=== PATIENT | female | born 1975 | race Two or more races ===

== ENCOUNTER 2018-03-09 10:48 | Emergency (ER) | payer OTHER ==
[2018-03-09 11:29] VITALS: BMI 23.3
[2018-03-09] MEDS ORDERED: HYDROmorphone HCl 2 MG/ML VIAL ONE (12:02)
[2018-03-09 13:24] LABS: HCG,QUALITATIVE URINE Negative
--- NOTE | 2018-03-09 13:37 | PDOC ---
History of Present Illness - General Chief Complaint: Revisit, Lab Variance Stated Complaint: PAIN Time Seen by Provider: 03/09/18 11:54 History Source: Patient Exam Limitations: No Limitations - History of Present Illness Initial Comments: 03/09/18 12:37 43-year-old Female with recent diagnosis of anemia presents to ED with complaints of intermittent in fatigue and shortness of breath with exertion over the past few months. Patient states went to her doctor for annual physical earlier this week and received a phone call that her hemoglobin was low and needed to go to the ER. Patient denies heavy menstrual cycle history of fibroids but states that have anemia during childbirth 9+ years ago. Patient states is not taking any supplements and denies frequent bruising or easy bleeding. Timing/Duration: intermittent Severity: mild Associated Symptoms: reports: malaise, shortness of breath, weakness Past History - Travel Traveled outside of the country in the last 30 days: No Close contact w/someone who was outside of country & ill: No - Past Medical History Allergies/Adverse Reactions: Allergies Allergy/AdvReac Type Severity Reaction Status Date / Time No Known Allergies Allergy Verified 03/09/18 12:41 - Suicide/Smoking/Psychosocial Hx Smoking History: Never smoked Patient Lives Alone: No Lives with/in: spouse/SO Review of Systems - Review of Systems Able to Perform ROS?: Yes Constitutional: Yes: Weakness HEENTM: No: Symptoms Reported Respiratory: Yes: Shortness of Breath Cardiac (ROS): Yes: Symptoms Reported. No: Lightheadedness ABD/GI: No: Symptoms Reported : No: Symptoms Reported Musculoskeletal: No: Symptoms Reported Integumentary: No: Symptoms Reported Neurological: Yes: Weakness. No: Dizziness Endocrine: No: Symptoms Reported Hematologic/Lymphatic: Yes: Anemia *Physical Exam - Vital Signs Last Vital Signs Temp Pulse Resp BP Pulse Ox 98.8 F 81 18 116/56 L 100 03/09/18 11:18 03/09/18 11:18 03/09/18 11:18 03/09/18 11:18 03/09/18 11:18 - Physical Exam General Appearance: Yes: Nourished, Appropriately Dressed. No: Apparent Distress HEENT: positive: EOMI, TANNER, Pharynx Normal. negative: Pale Conjunctivae Neck: positive: Normal Thyroid, Supple Respiratory/Chest: positive: Lungs Clear, Normal Breath Sounds. negative: Respiratory Distress, Accessory Muscle Use Cardiovascular: positive: Regular Rhythm, Regular Rate. negative: Murmur Integumentary: positive: Normal Color, Warm, Moist Neurologic: positive: Normal Mood/Affect, Motor Strength 5/5 ( ambulatory) Moderate Sedation - Procedure Monitoring Vital Signs: Procedure Monitoring Vital Signs Temperature 98.8 F 03/09/18 11:18 Pulse Rate 81 03/09/18 11:18 Respiratory Rate 18 03/09/18 11:18 Blood Pressure 116/56 L 03/09/18 11:18 O2 Sat by Pulse Oximetry (%) 100 03/09/18 11:18 ED Treatment Course - LABORATORY CBC & Chemistry Diagram: 03/09/18 12:54 03/09/18 12:54 Medical Decision Making - Medical Decision Making 03/09/18 12:39 Chief complaint: Patient sent here for evaluation of low hemoglobin. Patient with intermittent shortness of breath and weakness over the past month but denies any other complaints. Patient states had anemia while 29+ years ago. Exam: Patient with normal vital signs Plan: CBC, comp, type and screen, urinalysis and . Patient states does not want any transfusion and wants to go home regardless of the number but will start on iron 03/09/18 14:06 Laboratory Tests 03/09/18 03/09/18 03/09/18 12:54 12:54 12:54 WBC 4.6 Hgb 5.8 L* Hct 22.1 L MCV 52.0 L MCH 13.5 L MCHC 26.0 L RDW 28.6 H Lymphocytes % 41.9 H Sodium 137 Potassium 3.9 Chloride 104 Carbon Dioxide 26 Anion Gap 7 L BUN 14 Creatinine 0.7 Random Glucose 82 Calcium 8.5 Total Bilirubin 0.5 AST 18 ALT 23 Alkaline Phosphatase 73 Total Protein 7.3 Albumin 3.9 TSH 0.64 Urine HCG, Qual Negative Discussed with patient to receive blood transfusion. Patient at this time states does not want to receive a blood transfusion once to discuss the results with her first. Patient understands she will have the sign out AMA and is coherent alert and oriented. AMA forms completed. 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 Understand that leaving AGAINST MEDICAL ADVICE today you have chosen to be responsible for your own medical care. - Post Discharge Activity
[2018-03-09 13:39] LABS: EOS % 1.3 % (0-4.5); HEMATOCRIT 22.1 % (32.4-45.2); LYMPH % 41.9 % (8-40); MONO % 6.9 % (3.8-10.2); NEUT % 48.9 % (42.8-82.8); RBC 4.26 M/mm3 (3.60-5.2); RDW 28.6 % (11.6-15.6); WHITE BLOOD COUNT 4.6 K/mm3 (4.0-10.0)
[2018-03-09 13:40] LABS: MCH 13.5 pg (25.7-33.7)
[2018-03-09 13:42] LABS: HEMOGLOBIN 5.8 GM/dL (10.7-15.3)
[2018-03-09 13:45] LABS: ALBUMIN 3.9 g/dl (3.4-5.0); ALK PHOS 73 U/L (45-117); ANION GAP 7 MMOL/L (8-16); BILIRUBIN,TOTAL 0.5 mg/dL (0.2-1); BLOOD UREA NITROGEN 14 mg/dL (7-18); CALCIUM 8.5 mg/dL (8.5-10.1); CHLORIDE 104 mmol/L (98-107); CO2 26 mmol/L (21-32); CREATININE 0.7 mg/dL (0.55-1.3); GLUCOSE,RANDOM 82 mg/dL (74-106); POTASSIUM 3.9 mmol/L (3.5-5.1); SGOT/AST 18 U/L (15-37); SGPT/ALT 23 U/L (13-61); SODIUM 137 mmol/L (136-145); TOT PROT 7.3 g/dl (6.4-8.2)
[2018-03-09 13:56] VITALS: BP 124/76; PULSE 80; TEMP 98.4
[2018-03-09 14:05] LABS: URINE APPEARANCE SLCLOUDY; URINE BILIRUBIN NEGATIVE (<2.0 mg/dL); URINE COLOR LTYELLOW; URINE GLUCOSE (UA) NEGATIVE (NEGATIVE); URINE KETONE NEGATIVE (NEGATIVE); URINE LEUK ESTERASE NEGATIVE (NEGATIVE); URINE NITRITE NEGATIVE (NEGATIVE); URINE PROTEIN NEGATIVE (NEGATIVE); URINE UROBILINOGEN NEGATIVE mg/dL (0.2-1.0)
[2018-03-09 15:21] LABS: MEAN PLT VOLUME 8.3 fl (7.5-11.1); OVALOCYTE 1+; PLATELET COUNT 135 K/MM3 (134-434); TEAR DROP CELLS 1+
== END 2018-03-09 14:04 | disposition left against medical advice (07) ==
LOC: JER 10:48
DX: D64.9 Anemia, unspecified (principal)
CPT/HCPCS: 36415; 80053; 81003; 84443; 84703; 85025; 86850; 86900; 86901; 99282-25

== ENCOUNTER 2018-03-10 08:14 | Observation (INO) | payer OTHER ==
[2018-03-10 08:22] VITALS: BMI 24.5
[2018-03-10 09:44] LABS: BASO % 0.8 % (0-2.0); EOS % 1.6 % (0-4.5); HEMATOCRIT 22.6 % (32.4-45.2); LYMPH % 46.5 % (8-40); MCHC 26.8 g/dl (32.0-36.0); MEAN PLT VOLUME 8.4 fl (7.5-11.1); MONO % 8.1 % (3.8-10.2); RBC 4.33 M/mm3 (3.60-5.2); RDW 28.9 % (11.6-15.6); WHITE BLOOD COUNT 4.2 K/mm3 (4.0-10.0)
[2018-03-10 10:05] LABS: MCH 13.9 pg (25.7-33.7)
[2018-03-10 10:14] LABS: INR 1.06 (0.83-1.09); PROTHROMBIN TIME (PATIENT) 12.5 SEC (9.7-13.0)
[2018-03-10 10:16] LABS: ACTIVATED PTT 28.1 SECONDS (25.2-36.5)
[2018-03-10 10:27] LABS: ALBUMIN 3.9 g/dl (3.4-5.0); ALK PHOS 82 U/L (45-117); ANION GAP 9 MMOL/L (8-16); BILIRUBIN,TOTAL 0.6 mg/dL (0.2-1); BLOOD UREA NITROGEN 12 mg/dL (7-18); CALCIUM 8.6 mg/dL (8.5-10.1); CHLORIDE 104 mmol/L (98-107); CO2 26 mmol/L (21-32); CREATININE 0.7 mg/dL (0.55-1.3); GLUCOSE,RANDOM 85 mg/dL (74-106); SGOT/AST 16 U/L (15-37); SGPT/ALT 21 U/L (13-61); SODIUM 139 mmol/L (136-145); TOT PROT 7.5 g/dl (6.4-8.2)
--- NOTE | 2018-03-10 11:51 | EKG ---
Test Reason : Blood Pressure : / mmHG Vent. Rate : 078 BPM Atrial Rate : 078 BPM P-R Int : 144 ms QRS Dur : 070 ms QT Int : 368 ms P-R-T Axes : 040 053 038 degrees QTc Int : 419 ms NORMAL SINUS RHYTHM NORMAL ECG NO PREVIOUS ECGS AVAILABLE Confirmed by RAISA SALINAS, ERICKA ([id number]) on 03/10/2018 11:51:08 AM Referred By: Confirmed By:ERICKA KLINE MD
--- NOTE | 2018-03-10 11:56 | PDOC ---
History of Present Illness - General Chief Complaint: Blood Transfusion Stated Complaint: BLOOD TRANSFUSION Time Seen by Provider: 03/10/18 09:29 Past History - Past Medical History Allergies/Adverse Reactions: Allergies Allergy/AdvReac Type Severity Reaction Status Date / Time No Known Allergies Allergy Verified 03/10/18 08:18 Home Medications: Ambulatory Orders Ferrous Sulfate 325 mg PO BID #60 tablet 03/09/18 COPD: No Dialysis: No Hypercholesterolemia: No - Immunization History Immunization Up to Date: No - Suicide/Smoking/Psychosocial Hx Smoking History: Never smoked *Physical Exam - Vital Signs Last Vital Signs Temp Pulse Resp BP Pulse Ox 98.6 F 86 16 122/80 99 03/10/18 08:19 03/10/18 08:19 03/10/18 08:19 03/10/18 08:19 03/10/18 08:19 Moderate Sedation - Procedure Monitoring Vital Signs: Procedure Monitoring Vital Signs Temperature 98.6 F 03/10/18 08:19 Pulse Rate 86 03/10/18 08:19 Respiratory Rate 16 03/10/18 08:19 Blood Pressure 122/80 03/10/18 08:19 O2 Sat by Pulse Oximetry (%) 99 03/10/18 08:19 ED Treatment Course - LABORATORY CBC & Chemistry Diagram: 03/10/18 09:29 03/10/18 09:17 - ADDITIONAL ORDERS Additional order review: Laboratory Results 03/10/18 03/10/18 03/10/18 10:07 09:29 09:29 PT with INR 12.50 INR 1.06 PTT (Actin FS) 28.1 Sodium Potassium Chloride Carbon Dioxide Anion Gap BUN Creatinine Creat Clearance w eGFR Random Glucose Calcium Total Bilirubin AST ALT Alkaline Phosphatase Total Protein Albumin Stool Occult Blood Negative Blood Type O POSITIVE Antibody Screen Negative Crossmatch See Detail 03/10/18 09:17 PT with INR INR PTT (Actin FS) Sodium 139 Potassium 4.0 Chloride 104 Carbon Dioxide 26 Anion Gap 9 BUN 12 Creatinine 0.7 Creat Clearance w eGFR > 60 Random Glucose 85 Calcium 8.6 Total Bilirubin 0.6 AST 16 ALT 21 Alkaline Phosphatase 82 Total Protein 7.5 Albumin 3.9 Stool Occult Blood Blood Type Antibody Screen Crossmatch 03/10/18 09:29 RBC 4.33 MCV 52.0 L MCHC 26.8 L RDW 28.9 H Neutrophils % 43.0 Lymphocytes % 46.5 H Monocytes % 8.1 Eosinophils % 1.6 Basophils % 0.8 *DC/Admit/Observation/Transfer - Referrals Referrals: James Tejeda MD [Primary Care Provider] - - Patient Instructions - Post Discharge Activity
--- NOTE | 2018-03-10 12:06 | PDOC ---
Attending Attestation - Resident Resident Name: Marlen Langston - ED Attending Attestation I have performed the following: I have examined & evaluated the patient, The case was reviewed & discussed with the resident, I agree w/resident's findings & plan - HPI HPI: 03/10/18 12:06 43-year-old Female with recent diagnosis of anemia presents to ED with complaints of intermittent in fatigue, dizziness and shortness of breath with exertion over the past few months. Patient states went to her doctor for annual physical earlier this week and received a phone call that she was anemic, told she needed to go to the ER. Patient denies heavy menstrual cycle history of fibroids but states that have anemia during childbirth 9+ years ago. no history of transfusion. Patient states is not taking any supplements and denies frequent bruising or easy bleeding. AMAd yesterday in the ED, where she was noted to be anemic 5.8/03/10/18 12:08 - Physicial Exam PE: 03/10/18 12:09 NAD, well appearing, PERRL, EOMI, MMM, pale conjunctiva, anicteric; neck supple. lungs clear, RRR, abdomen soft nontender. BAUTISTA x4, no calf tenderness. No peripheral edema. pale appearing, WWP. - Medical Decision Making 03/10/18 12:10 See HPI for details Vital signs reviewed, wnl. Prior notes reviewed, including admissions, discharges and consultations. laboratory results and imaging reviewed, basic labs and lytes wnl, coags normal. H/H 6.8/, severely anemic. labs from yesterday reviewed, also normal TSH and lytes, with Anemia noted Txs Rh positive status, from yesterday EKG normal sinus rhythm, no interval abnormalities, narrow QRS, ST and T wave segments and morphology normal. ED course: consented for blood transfusion, indication of severe anemia with unclear source. tx 2 units pRBC, monitor, observation. anemia workup ordered and sent. admit OBS. 03/10/18 12:14 03/10/18 12:16 Heart Score/ECG Review - ECG Impressions Normal ECG: Yes Comment:: 03/10/18 12:14 EKG normal sinus rhythm, no interval abnormalities, narrow QRS, ST and T wave segments and morphology normal.
[2018-03-10 12:34] LABS: BILIRUBIN,DIRECT 0.1 mg/dL (0.0-0.2)
[2018-03-10 12:48] LABS: PLATELET ESTIMATE DECREASED
[2018-03-10 13:14] LABS: PLATELET COUNT 111 K/MM3 (134-434)
--- NOTE | 2018-03-10 13:33 | HP ---
Admitting History and Physical - Primary Care Physician PCP: James Tejeda - Admission History of Present Illness: send from pmd office due to sever anemia. pt reports feels tired hb around 6 -- soke with pts pmd -- new pt -- no previous labs pt reports had iron trasfusions in past with other doctors denies cp no bad pain denies blood in stools denies heavy bleeding pt seen in er-- got one unit of prbcs going to get second pt dont want to stay says has to go home after transfusion says will follow with her pmd-- explained need likley iron transfusions/ further work up pt says will follow with her pmd History Source: Patient Limitations to Obtaining History: No Limitations - Smoking History Smoking history: Never smoked Home Medications - Allergies Allergies/Adverse Reactions: Allergies Allergy/AdvReac Type Severity Reaction Status Date / Time No Known Allergies Allergy Verified 03/10/18 08:18 - Home Medications Home Medications: Ambulatory Orders Ferrous Sulfate 325 mg PO BID #60 tablet 03/09/18 Review of Systems - Review of Systems Constitutional: reports: Weakness Eyes: reports: No Symptoms Neck: reports: No Symptoms Cardiovascular: reports: No Symptoms Respiratory: reports: No Symptoms Gastrointestinal: reports: No Symptoms Genitourinary: reports: No Symptoms Neurological: reports: No Symptoms Hematology/Lymphatic: reports: No Symptoms Psychiatric: reports: No Symptoms Physical Examination Vital Signs: Vital Signs Temperature 98 F 03/10/18 12:45 Pulse Rate 82 03/10/18 12:45 Respiratory Rate 16 03/10/18 12:45 Blood Pressure 152/81 03/10/18 12:45 O2 Sat by Pulse Oximetry (%) 98 03/10/18 12:45 Constitutional: Yes: No Distress, Calm Eyes: Yes: Other (conjuctiva pale) Neck: Yes: Supple Cardiovascular: Yes: Regular Rate and Rhythm Respiratory: Yes: CTA Bilaterally Gastrointestinal: Yes: Soft Edema: No Neurological: Yes: WNL, Alert Psychiatric: Yes: Alert Labs: CBC, BMP 03/10/18 09:29 03/10/18 09:17 Imaging - Results EKG: Report Reviewed Problem List - Problems (1) Iron deficiency anemia Code(s): D50.9 - IRON DEFICIENCY ANEMIA, UNSPECIFIED Assessment/Plan discussed in detail not willing to stay f/u with pmd advised then need iron infusions/ supplement/ hematology consult will d/c after 2nd transfusion lasix after first transfusion discussed with nursing staff also
[2018-03-10] MEDS ORDERED: FUROSEMIDE 40 MG/4 ML INJECTABLE VIAL IVPUSH ONE (13:50)
[2018-03-10] MEDS ORDERED: FUROSEMIDE 40 MG/4 ML INJECTABLE VIAL ONE (14:09)
[2018-03-10 14:32] VITALS: TEMP 97.8
[2018-03-10 16:24] VITALS: BP 114/79; PULSE 75
--- NOTE | 2018-03-10 18:17 | DS ---
Physical Examination Vital Signs: Vital Signs Temperature 97.8 F 03/10/18 16:21 Pulse Rate 75 03/10/18 16:21 Respiratory Rate 16 03/10/18 16:21 Blood Pressure 114/79 03/10/18 16:21 O2 Sat by Pulse Oximetry (%) 100 03/10/18 16:21 Findings/Remarks: see h/p Labs: CBC, BMP 03/10/18 09:29 03/10/18 09:17 Discharge Summary Reason For Visit: ANEMIA Current Active Problems Anemia (Acute) Iron deficiency anemia (Acute) Condition: Stable - Instructions Referrals: James Tejeda MD [Primary Care Provider] - - Home Medications Comprehensive Discharge Medication List: Ambulatory Orders Ferrous Sulfate 325 mg PO BID #60 tablet 03/09/18
[2018-03-11 04:14] LABS: SERUM IRON SATURATION 2 % (15-55); TOTAL IRON BINDING CAPACITY 541 ug/dL (250-450); UIBC 531 ug/dL (131-425)
== END 2018-03-10 16:48 | disposition home or self-care (01) ==
LOC: JER 08:14 → JERBED 11:05
PROVIDERS: ADMIT Internal Medicine; ATTEND Internal Medicine
PROC: 30233N1 Transfusion of Nonautologous Red Blood Cells into Peripheral Vein, Percutaneous Approach (ICD-10-PCS; principal; 2018-03-10)
PROC: 3E033GC Introduction of Other Therapeutic Substance into Peripheral Vein, Percutaneous Approach (ICD-10-PCS; 2018-03-10)
DX: D50.9 Iron deficiency anemia, unspecified (principal)
CPT/HCPCS: 36415; 36430; 80053; 82248; 82272; 82728; 83010; 83021; 83540; 83550; 83615; 84443; 84703; 85025; 85044; 85610; 85660; 85730; 86850; 86900; 86901; 86922; 93005; 93010; 99285-25; G0378; P9038; P9058

== ENCOUNTER 2018-07-03 07:14 | Day surgery (SDC) | payer OTHER ==
[2018-07-03] MEDS ORDERED: IRON SUCROSE INJECTION 200 MG in SODIUM CHLORIDE 100 ML IVPB ONE (10:00)
[2018-07-03 15:30] VITALS: TEMP 98.6
[2018-07-03 15:32] VITALS: BP 109/73; PULSE 67
== END 2018-07-03 14:10 | disposition home or self-care (01) ==
LOC: JONCNONCHE 07:14 → J7W 12:25 → JONCNONCHE 14:10
PROVIDERS: ATTEND Internal Medicine Hematology & Oncology
PROC: 3E033GC Introduction of Other Therapeutic Substance into Peripheral Vein, Percutaneous Approach (ICD-10-PCS; principal; 2018-07-03)
DX: D50.9 Iron deficiency anemia, unspecified (principal)
CPT/HCPCS: 96365; J1756

== ENCOUNTER 2018-07-21 07:09 | Day surgery (SDC) | payer OTHER | END 2018-07-21 11:40 | disposition home or self-care (01) | LOC: JONCCHEMO 07:09 → J7W 10:05 → JONCNONCHE 11:40 ==

== ENCOUNTER 2018-08-11 10:00 | Day surgery (SDC) | payer OTHER ==
[~2018-08-11 10:00] MED LIST: IRON SUCROSE INJECTION 200 MG in SODIUM CHLORIDE 100 ML IVPB ONE
[2018-08-11 10:42] VITALS: TEMP 98.2
[2018-08-11 12:02] VITALS: BP 117/70; PULSE 77
== END 2018-08-11 11:15 | disposition home or self-care (01) ==
LOC: JONCNONCHE 10:00 → J7W 10:05 → JONCNONCHE 11:15
PROVIDERS: ATTEND Internal Medicine Hematology & Oncology
PROC: 3E033GC Introduction of Other Therapeutic Substance into Peripheral Vein, Percutaneous Approach (ICD-10-PCS; principal; 2018-08-11)
DX: D50.9 Iron deficiency anemia, unspecified (principal)
CPT/HCPCS: 96365; J1756

== ENCOUNTER 2018-08-24 05:34 | Day surgery (SDC) | payer OTHER ==
[2018-08-24] MEDS ORDERED: IRON SUCROSE INJECTION 200 MG in SODIUM CHLORIDE 100 ML IVPB ONE (10:00)
[2018-08-24 17:28] VITALS: BP 125/79; PULSE 71; TEMP 98.4
== END 2018-08-24 13:45 | disposition home or self-care (01) ==
LOC: JONCCHEMO 05:34 → J7W 13:58
PROVIDERS: ATTEND Internal Medicine Hematology & Oncology
PROC: 3E033GC Introduction of Other Therapeutic Substance into Peripheral Vein, Percutaneous Approach (ICD-10-PCS; principal; 2018-08-24)
DX: D50.9 Iron deficiency anemia, unspecified (principal)
CPT/HCPCS: 96365; J1756

== ENCOUNTER 2018-08-25 14:32 | Emergency (ER) | payer OTHER ==
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
[2018-08-25] MEDS ORDERED: IBUPROFEN 600 MG TABLET (FP) PO ONE ×2 (14:39→15:05)
[2018-08-25 14:40] VITALS: BP 144/89; PULSE 88; TEMP 98.6; BMI 24.2
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
== END 2018-08-25 16:15 | disposition home or self-care (01) ==
LOC: JERFT 14:32
DX: S40.021A Contusion of right upper arm, initial encounter (principal); V43.62XA Car passenger injured in collision with other type car in traffic accident, initial encounter; Y92.414 Local residential or business street as the place of occurrence of the external cause; Y93.89 Activity, other specified; Y99.8 Other external cause status
CPT/HCPCS: 73060-TC-RT-FY; 84703; 99282-25